=== PATIENT | male | born 1980 | race Two or more races ===

== ENCOUNTER 2020-04-25 11:27 | Emergency (ER) | payer SELFPAY ==
[2020-04-25] MEDS ORDERED: Diphtheria,Pertussis(Acell),Tetanus Vaccine 0.5 ML Syringe IM ONE (11:48)
[2020-04-25] MEDS ORDERED: Bupivacaine 0.5% 10 ML SDV INJECT ONE (11:48)
--- NOTE | 2020-04-25 11:51 | EDM.PDOC ---
ED HPI GENERAL MEDICAL PROBLEM - General Chief Complaint: Laceration Stated Complaint: CUT LIP Time Seen by Provider: 04/25/20 11:30 Source of Information: Reports: Patient History Limitations: Reports: No Limitations - History of Present Illness INITIAL COMMENTS - FREE TEXT/NARRATIVE: 40-year-old male no past medical history presenting with facial injuries. Approximately 30 minutes prior to arrival, the patient was working on a garage door when 1 of the garage door pins struck his face, causing him to sustain a laceration to the left upper lip and a partial fracture to one of his upper teeth. States the metal part that caused the injury was not dirty or kristin. He did not lose consciousness and denies any other injuries. Tetanus immunization is not up-to-date. No other complaints. Left Upper Lip Pain Score (Numeric/FACES): 2 - Related Data Allergies Allergy/AdvReac Type Severity Reaction Status Date / Time No Known Allergies Allergy Verified 04/25/20 11:42 Home Meds: Home Meds . [No Known Home Meds] 04/25/20 [History] Past Medical History - Past Health History Medical/Surgical History: Denies Medical/Surgical History Psychiatric History: Reports: None - Infectious Disease History Infectious Disease History: Reports: None Social & Family History - Tobacco Use Smoking Status *Q: Current Every Day Smoker Years of Tobacco use: 3 Packs/Tins Daily: 0.5 - Recreational Drug Use Recreational Drug Use: No ED ROS GENERAL - Review of Systems Review Of Systems: See Below HEENT: Reports: Dental Pain. Denies: Throat Pain, Throat Swelling Respiratory: Denies: Shortness of Breath Cardiovascular: Denies: Chest Pain GI/Abdominal: Denies: Abdominal Pain Skin: Reports: Wound Neurological: Denies: Headache, Numbness, Tingling ED EXAM, SKIN/RASH Exam: See Below Text/Narrative:: Vital signs reviewed. Nursing notes reviewed. Constitutional: Awake, alert, non-distressed. Head: Superficial abrasion to left side of chin. Eyes: EOMI, conjunctiva normal, no discharge, no scleral icterus. Ears, Nose, Throat: External ears and nose normal, moist oral mucosa. 1.2 cm linear gaping laceration to the upper lip, not a through and through laceration pattern. The left maxillary incisor demonstrates a Hernandez class I dental fracture without any exposed dentin or pulp. Teeth are stable. Cardiovascular: 2+ radial pulse, capillary refill less than 2 seconds. Pulmonary: normal work of breathing, no accessory muscle use. Abdomen/GI: Soft, nontender, nondistended, no guarding or rigidity, no masses. Musculoskeletal: No deformities. Integumentary: Appropriate color for ethnicity, warm, dry, no pallor or jaundice, no rash. Neurologic: Alert, answering questions appropriately, normal speech, no facial droop, moving all extremities well. Psychiatric: Appropriate mood and affect, normal thought process. Exam Limited By: No Limitations Ears: Normal External Exam Nose: Normal Inspection, Normal Mucosa, No Blood Throat/Mouth: Normal Voice, No Airway Compromise Neck: Supple, Non-Tender Respiratory/Chest: No Respiratory Distress, Normal Breath Sounds, No Accessory Muscle Use Cardiovascular: Normal Peripheral Pulses ED SKIN PROCEDURES - Laceration/Wound Repair Lower Mouth Appearance: Subcutaneous Anesthetic Type: Local Local Anesthesia - Bupivicaine (Marcaine): 0.5% Plain Local Anesthetic Volume: 2cc Skin Prep: Saline Exploration/Debridement/Repair: Wound Explored, In a Bloodless Field, No Foreign Material Found Closed with: Sutures Lac/Wound length In cm: 1.2 Suture Size: 5-0 # of Sutures: 3 Suture Size: 5-0 # of Sutures: 1 Repaired with: Vicryl Drain Placement: No Tetanus Status Addressed: Yes Complications: No Progress/Comments: Intermediate complexity. Multi-layer closure. Course - Vital Signs Text/Narrative:: Tetanus immunization booster given. Underwent laceration repair as detailed in procedure note. Class I dental fracture noted, will have patient follow-up with a dentist if desired for cosmetic reasons. Return in 5 to 7 days for suture removal. Suture care precautions given. Recommended [id number] Tylenol and ibuprofen for pain as needed. Plan: Patient is stable to discharge home. Strict emergency department return precautions were provided, patient indicated understanding. All questions were answered prior to departure. Discharged in good condition. Last Recorded V/S: Last Vital Signs Temp 36.3 C 04/25/20 11:40 Pulse 60 04/25/20 11:40 Resp 16 04/25/20 11:40 BP 181/113 H 04/25/20 11:40 Pulse Ox 96 04/25/20 11:40 - Orders/Labs/Meds Orders: Active Orders 24 hr Category Date Time Status Vaccines to be Administered [RC] PER UNIT ROUTINE Care 04/25/20 11:48 Active Meds: Medications Discontinued Medications Generic Name Dose Route Start Last Admin Trade Name Edgardo PRN Reason Stop Dose Admin Bupivacaine HCl 10 ml 04/25/20 11:48 04/25/20 12:33 Sensorcaine-Mpf 0.5% INJECT 04/25/20 11:49 10 ml ONETIME ONE Administration Diphtheria/Tetanus/Acell Pertussis 0.5 ml 04/25/20 11:48 04/25/20 12:33 Adacel IM 04/25/20 11:49 0.5 ml .ONCE ONE Administration Departure - Departure Time of Disposition: 13:41 Disposition: Home, Self-Care 01 Clinical Impression: Chin abrasion, non-infected Tooth fracture Qualifiers: Encounter type: initial encounter Fracture type: closed Qualified Code(s): S02.5XXA - Fracture of tooth (traumatic), initial encounter for closed fracture Laceration of lip Qualifiers: Encounter type: initial encounter Qualified Code(s): S01.511A - Laceration without foreign body of lip, initial encounter - Discharge Information *PRESCRIPTION DRUG MONITORING PROGRAM REVIEWED*: Not Applicable *COPY OF PRESCRIPTION DRUG MONITORING REPORT IN PATIENT KAMILLA: Not Applicable Instructions: Tooth Injuries, [id number], Laceration Care, Adult, [id number]-[id number], Abrasion, [id number] Referrals: PCP,None [Primary Care Provider] - Forms: ED Department Discharge Additional Instructions: Thank you for choosing the [facility] emergency department in [place] for your medical needs today. It was a pleasure caring for you. You were seen in the emergency department for a laceration to your lip. This was repaired with sutures. The sutures need to be removed in 5 to 7 days, you can come back to the ER and we will remove them for you. I recommend [id number] Tylenol or ibuprofen as directed on the package for pain. One of your teeth is fractured (broken). You can follow-up with a dentist if you desire further evaluation for cosmetic purposes but it should not affect your ability to eat or swallow. Please return the emergency department immediately if your symptoms worsen or if you feel worse. The following information is given to patients seen in the emergency department who are being discharged. This information is to outline your options for follow-up care. We provide all patients seen in our emergency department with a follow-up referral. The need for follow-up, as well as the timing and circumstances, are variable depending upon the specifics of your emergency department visit. If you don't have a primary care physician on staff, we will provide you with a referral. We always advise you to contact your personal physician following an emergency department visit to inform them of the circumstance of the visit and for follow-up with them and/or the need for any referrals to a consulting specialist. The emergency department will also refer you to a specialist when appropriate. This referral assures that you have the opportunity for follow-up care with a specialist. All of these measure are taken in an effort to provide you with optimal care, which includes your follow-up. Under all circumstances we always encourage you to contact your private physician who remains a resource for coordinating your care. When calling for follow-up care, please make the office aware that this follow-up is from your recent emergency room visit. If for any reason you are refused follow-up, please contact the [facility] Emergency Department at and asked to speak to the emergency department charge nurse. If you do not have a primary care physician that is caring for you, you can contact these clinics below to set up an appointment to establish care: [facility] [address] [place] [id number] [facility] [address] [place] [id number] Sepsis Event Note (ED) - Evaluation Sepsis Screening Result: No Definite Risk - Focused Exam Vital Signs: Vital Signs Temp Pulse Resp BP Pulse Ox 04/25/20 11:40 36.3 C 60 16 181/113 H 96 - My Orders Last 24 Hours: My Active Orders 04/25/20 11:48 Vaccines to be Administered [RC] PER UNIT ROUTINE - Assessment/Plan Last 24 Hours: My Active Orders 04/25/20 11:48 Vaccines to be Administered [RC] PER UNIT ROUTINE
== END 2020-04-25 13:57 | disposition home or self-care (01) ==
LOC: MW.ED 11:27
DX: S02.5XXA Fracture of tooth (traumatic), initial encounter for closed fracture (principal); S01.511A Laceration without foreign body of lip, initial encounter; Z23 Encounter for immunization; F17.210 Nicotine dependence, cigarettes, uncomplicated; W23.0XXA Caught, crushed, jammed, or pinched between moving objects, initial encounter
CPT/HCPCS: 12011; 90471; 90715; 99282; J3490

== ENCOUNTER 2020-05-03 17:20 | Emergency (ER) | payer SELFPAY | END 2020-05-03 17:36 | disposition left against medical advice (07) | LOC: MW.ED 17:20 | DX: S01.511D Laceration without foreign body of lip, subsequent encounter (principal); W22.8XXD Striking against or struck by other objects, subsequent encounter | CPT/HCPCS: 99281 ==

== ENCOUNTER 2022-03-12 13:51 | Emergency (ER) | payer BC ==
[2022-03-12] MEDS ORDERED: Lidocaine 2% Viscous Solution 15 ML UD PO ONE (14:11)
[2022-03-12] MEDS ORDERED: Benzocaine 20% Topical Spray UD MUCMEM ONE (14:11)
== END 2022-03-12 14:27 | disposition home or self-care (01) ==
LOC: MW.ED 13:51
DX: K04.7 Periapical abscess without sinus (principal)
CPT/HCPCS: 99282; A9270

== ENCOUNTER 2023-04-22 06:11 | Emergency (ER) | payer BC, OTHER ==
[2023-04-22] MEDS ORDERED: Morphine 4 MG/ML Syringe IVPUSH ONE (06:40)
[2023-04-22] MEDS ORDERED: Ondansetron 4 MG/2 ML SDV IVPUSH ONE (06:40)
[2023-04-22] MEDS ORDERED: Sodium Chloride 0.9% 1,000 ML IV ONE (06:40)
[2023-04-22] MEDS ORDERED: Ketorolac 30 MG/ML SDV IVPUSH ONE (06:40)
[2023-04-22 06:50] LABS: BASOPHILS PERCENT AUTO 0.4 % (0.0-1.5); EOSINOPHILS ABSOLUTE AUTO 0.3 K/uL (0.0-0.7); EOSINOPHILS PERCENT AUTO 2.8 % (0.0-7.0); HEMATOCRIT 42.8 % (38.0-50.0); HEMOGLOBIN 14.2 g/dL (13.0-17.0); LYMPHOCYTES ABSOLUTE AUTO 3.9 K/uL (0.6-2.4); LYMPHOCYTES PERCENT AUTO 40.4 % (16.0-40.0); MEAN CORPUSCULAR HEMOGLOBIN 29.8 pg (27.0-32.0); MEAN CORPUSCULAR HGB CONC 33.2 g/dL (31.0-37.0); MEAN CORPUSCULAR VOLUME 89.9 fL (80.0-98.0); MONOCYTES ABSOLUTE AUTO 1.1 K/uL (0.0-0.8); MONOCYTES PERCENT AUTO 11.6 % (0.0-15.0); NEUTROPHILS ABSOLUTE AUTO 4.3 K/uL (1.4-5.7); NEUTROPHILS PERCENT AUTO 44.8 % (48.0-80.0); NRBC ABSOLUTE 0 K/uL; PLATELET COUNT,PLT 335 K/uL (150-400); RED BLOOD CELL COUNT 4.76 M/uL (4.50-5.90); WHITE BLOOD CELL COUNT,WBC 9.61 K/uL (4.0-11.0)
[2023-04-22 07:00] LABS: APPEARANCE,URINE CLEAR; GLUCOSE,URINE NEGATIVE (NEGATIVE); KETONES,URINE TRACE mg/dL (NEGATIVE); LEUKOCYTE ESTERASE,URINE NEGATIVE (NEGATIVE); NITRITE,URINE POSITIVE (NEGATIVE); OCCULT BLOOD,URINE LARGE (NEGATIVE); PH,URINE 5.5 (5.0-8.0); PROTEIN,URINE 100 mg/dL (NEGATIVE); UROBILINOGEN,URINE 0.2 EU/dL (<2.0)
[2023-04-22 07:16] LABS: A/G RATIO 0.8 (0.9-1.6); ALBUMIN 3.6 g/dL (3.4-5.0); BILIRUBIN TOTAL 0.4 mg/dL (0.2-1.0); CALCIUM 8.8 mg/dL (8.5-10.1); CARBON DIOXIDE,CO2 24.4 mmol/L (21.0-32.0); CREATININE 1.1 mg/dL (0.8-1.3); EST CRCL DRUG DOSING (CG) 79.29 mL/min; PROTEIN TOTAL,TP 8.1 g/dL (6.4-8.2)
[2023-04-22 07:21] LABS: BACTERIA,URINE RARE (NEGATIVE); BILIRUBIN,URINE SMALL (NEGATIVE); CALCIUM OXALATE CRYSTALS,URINE MODERATE (NEGATIVE); COLOR,URINE DARK YELLOW; EPITHELIAL CELLS,URINE OCCASIONAL (NONE-FEW); WBC,URINE 0-1 (0-5/HPF)
[2023-04-22] MEDS ORDERED: cefTRIAXone 2 GM in Sodium Chloride 0.9% 50 ML IV ONE (08:04)
== END 2023-04-22 08:40 | disposition home or self-care (01) ==
LOC: MW.ED 06:11
DX: N20.0 Calculus of kidney (principal); R82.71 Bacteriuria
CPT/HCPCS: 36415; 74176; 80053; 81001; 85025; 96361; 96365; 96375; 99284; J0696; J1885; J2270; J2405; J3490; J7030; 99283